=== PATIENT | female | born 1960 | race Caucasian/White ===

== ENCOUNTER 2018-06-26 18:45 | Inpatient (IN) | payer MEDICARE ==
[~2018-06-26] VITALS: Ht 170.2 cm; Wt 97.8 kg
[~2018-06-26 18:45] MED LIST: CHLO25CA9; LORA0.5T; META800T; TRAZ150T18; VENL75CA
--- NOTE | 2018-06-26 18:54 | NUR ---
ASSUMED CARE OF PATIENT. PATIENT REPORTS SHE TRIPPED OVER HER DOG. MGLF. NO LOC. PT ALSO REPORTS SHE DRINKS EVERYDAY AND HAS HAD A FEW DRINKS. NO ACUTE DISTRESS NOTED. HX OF BACK PAIN. VS STABLE. WILL CONTINUE TO MONITOR.
[2018-06-26] MEDS ORDERED: KETOROLAC 30 MG/1 ML IM ONE (19:30)
[2018-06-26] MEDS ORDERED: KETOROLAC 30 MG/1 ML ONE (19:32)
--- NOTE | 2018-06-26 19:35 | NUR ---
AT BEDSIDE. PT WATCHING TV. NO ACUTE DISTRESS NOTED. CALL LIGHT IN PLACE. WILL CONTINUE TO MONITOR.
[2018-06-26] MEDS ORDERED: TRAZ150T62 PO (19:37)
[2018-06-26] MEDS ORDERED: KETOROLAC 30 MG/1 ML IVPush ONE (20:00)
--- NOTE | 2018-06-26 20:49 | NUR ---
DR CORONA HAS UPDATED PATIENT PATIENT DROPED TO 85% RA. 2L OF OXYGEN ON AT 95% CALL LIGHT IN PLACE. WILL CONTINUE TO MONITOR.
[2018-06-26 21:10] LABS: BASOPHILS # (AUTO) 0.12 x10^3/uL (0-0.1); BASOPHILS % (AUTO) 2 % (0-1); EOSINOPHILS # (AUTO) 0.07 x10^3/uL (0-0.4); EOSINOPHILS % (AUTO) 1 % (1-7); LYMPHOCYTES # (AUTO) 1.34 x10^3/uL (1-3.4); LYMPHOCYTES % (AUTO) 17 % (22-44); MD NO; MEAN CORPUSCULAR HEMOGLOBIN 37.4 pg (27.0-34.8); MEAN CORPUSCULAR HGB CONC 34.5 g/dL (32.4-35.8); MEAN CORPUSCULAR VOLUME 108.5 fL (80-100); MEAN PLATELET VOLUME 7.3 fL (7.4-10.4); MONOCYTES # (AUTO) 0.72 x10^3/uL (0.2-0.8); MONOCYTES % (AUTO) 9 % (2-9); NEUTROPHILS # (AUTO) 5.63 x10^3/uL (1.8-6.8); NEUTROPHILS % (AUTO) 72 % (42-75); PLATELET COUNT 254 x10^3/uL (130-400); RED BLOOD COUNT 3.81 x10^6/uL (3.82-5.3)
[2018-06-26 21:22] LABS: ANION GAP 14 mmol/L (5-15); CALCIUM 8.6 mg/dL (8.5-10.1); CHLORIDE 84 mmol/L (98-107)
[2018-06-26 21:27] LABS: ALANINE AMINOTRANSFERASE 50 U/L (12-78); ALKALINE PHOSPHATASE 292 U/L (45-117); BILIRUBIN,TOTAL 1.9 mg/dL (0.2-1.0); CREATININE 0.73 mg/dL (0.55-1.02); TOTAL PROTEIN 6.8 g/dL (6.4-8.2)
[2018-06-26] MEDS ORDERED: LEXAPRO (21:57)
[2018-06-26] MEDS ORDERED: NS + 20MEQ KCL 1,000 ML IV SCH ×2 (21:59→23:00)
[2018-06-26] MEDS ORDERED: MAXIDE (21:59)
--- NOTE | 2018-06-26 21:59 | NUR ---
REPORT GIVEN TO ARTURO MERAZ
[2018-06-26] MEDS ORDERED: MAGNESIUM SULFATE 1 GM in SODIUM CHLORIDE 0.9% 50 ML IV ONE (22:00)
[2018-06-26] MEDS ORDERED: POTASSIUM CHLORIDE 10% 40 MEQ/30 ML UDC PO ONE (22:00)
[2018-06-26] MEDS ORDERED: SODIUM CHLORIDE FLUSH 10ML SYR IVF PRN (22:00)
[2018-06-26] MEDS ORDERED: NS + 40MEQ KCL 1,000 ML IV SCH (22:00)
[2018-06-26] MEDS ORDERED: POTASSIUM CHLORIDE 10% 40 MEQ/30 ML UDC ONE (22:00)
[2018-06-26] MEDS ORDERED: ONDANSETRON 2MG/ML, 2ML ONE (22:01)
--- NOTE | 2018-06-26 22:25 | NUR ---
Telephone SBAR report called to Shanel MORRIS.
[2018-06-26] MEDS ORDERED: SODIUM CHLORIDE 0.9% 1,000 ML IV SCH (22:29)
[2018-06-26] MEDS ORDERED: ONDANSETRON 2MG/ML, 2ML IVPush ONE (22:30)
[2018-06-26] MEDS ORDERED: POLYETHYLENE GLYCOL 17 GM PACKET PO PRN (22:30)
[2018-06-26] MEDS ORDERED: CHLORDIAZEPOXIDE 25 MG CAPSULE PO PRN (22:30)
[2018-06-26] MEDS ORDERED: ACETAMINOPHEN 325 MG TABLET PO PRN (22:30)
[2018-06-26] MEDS ORDERED: TRAZODONE 150MG TABLET PO SCH (22:30)
[2018-06-26] MEDS ORDERED: ONDANSETRON ODT 4 MG PO PRN (22:30)
[2018-06-26] MEDS ORDERED: BISACODYL 10 MG SUPP PR PRN (22:30)
[2018-06-26 22:54] VITALS: BP 112/78
[2018-06-26] MEDS ORDERED: TRIA1TAB PO (23:27)
[2018-06-26] MEDS: METHOCARBAMOL 500 MG TABLET PO PRN (23:53)
[2018-06-27 03:22] VITALS: BP 103/60
[2018-06-27] MEDS ORDERED: POTASSIUM CHLORIDE 20 MEQ TAB.ER.PRT PO ONE (04:30)
[2018-06-27] MEDS ORDERED: POTASSIUM CHLORIDE 40 MEQ in SODIUM CHLORIDE 0.9% 500 ML IV ONE ×2 (04:30→10:00)
[2018-06-27] MEDS ORDERED: PLEASE ENTER ALLERGIES MC SCH (05:00)
[2018-06-27 05:48] LABS: BASOPHILS # (AUTO) 0.05 x10^3/uL (0-0.1); BASOPHILS % (AUTO) 1 % (0-1); EOSINOPHILS # (AUTO) 0.05 x10^3/uL (0-0.4); EOSINOPHILS % (AUTO) 1 % (1-7); LYMPHOCYTES # (AUTO) 1.06 x10^3/uL (1-3.4); LYMPHOCYTES % (AUTO) 16 % (22-44); MD NO; MEAN CORPUSCULAR HEMOGLOBIN 37.9 pg (27.0-34.8); MEAN CORPUSCULAR HGB CONC 34.9 g/dL (32.4-35.8); MEAN CORPUSCULAR VOLUME 108.3 fL (80-100); MEAN PLATELET VOLUME 7.7 fL (7.4-10.4); MONOCYTES # (AUTO) 0.69 x10^3/uL (0.2-0.8); MONOCYTES % (AUTO) 10 % (2-9); NEUTROPHILS # (AUTO) 4.85 x10^3/uL (1.8-6.8); NEUTROPHILS % (AUTO) 72 % (42-75); PLATELET COUNT 229 x10^3/uL (130-400); RED BLOOD COUNT 3.53 x10^6/uL (3.82-5.3); RED CELL DISTRIBUTION WIDTH 15.7 % (9.6-15.2)
[2018-06-27 05:57] LABS: ALANINE AMINOTRANSFERASE 51 U/L (12-78); ALBUMIN 2.6 g/dL (3.4-5.0); ANION GAP 10 mmol/L (5-15); CHLORIDE 89 mmol/L (98-107); CREATININE 0.71 mg/dL (0.55-1.02)
[2018-06-27 06:00] LABS: ALKALINE PHOSPHATASE 271 U/L (45-117); BILIRUBIN,TOTAL 2.2 mg/dL (0.2-1.0); TOTAL PROTEIN 6.2 g/dL (6.4-8.2)
[2018-06-27] MEDS: KETOROLAC 30 MG/1 ML IVPush PRN ×2 (06:38→17:37)
[2018-06-27 07:04] VITALS: BP 113/72
[2018-06-27] MEDS: SENNA/DOCUSATE TABLET PO SCH (09:00)
[2018-06-27] MEDS ORDERED: SODIUM PHOSPHATE 10 MMOL in SODIUM CHLORIDE 0.9% 500 ML IV ONE (10:00)
[2018-06-27 10:09] VITALS: BP 105/66
[2018-06-27] MEDS: FOLIC ACID 1 MG TABLET PO SCH (10:12)
[2018-06-27] MEDS: THIAMINE 100MG TABLET PO SCH ×2 (10:12→21:25)
[2018-06-27] MEDS: METHOCARBAMOL 500 MG TABLET PO PRN ×2 (10:12→21:25)
[2018-06-27] MEDS ORDERED: LORazepam 1MG TABLET PO PRN ×4 (11:00)
[2018-06-27] MEDS ORDERED: LORazepam 2 MG/ML, 1ML IV PRN ×5 (11:00)
[2018-06-27] MEDS ORDERED: LORazepam 0.5MG TABLET PO PRN (11:00)
[2018-06-27 13:22] VITALS: BP 109/76
[2018-06-27] MEDS: OXYcodone IR 5MG TABLET PO PRN ×2 (14:41→21:25)
[2018-06-27] MEDS ORDERED: GADOBUTROL 10 MMOL/10 ML PFS ONE (15:24)
[2018-06-27 16:45] LABS: INTERNATIONAL NORMALIZED RATIO 1.01 (0.93-1.1); PROTHROMBIN TIME 10.6 Seconds (9.6-11.5)
[2018-06-27 19:07] VITALS: BP 112/67
[2018-06-27] MEDS: HEPARIN 5,000 UNITS/ML, 1ML SQ SCH (21:24)
[2018-06-27] MEDS: DIPHENHYDRAMINE 12.5MG/5ML, 10ML UDC PO PRN (21:40)
[2018-06-28 02:09] VITALS: BP 110/72
[2018-06-28] MEDS: HEPARIN 5,000 UNITS/ML, 1ML SQ SCH ×3 (05:14→20:17)
[2018-06-28 05:38] LABS: BASOPHILS # (AUTO) 0.03 x10^3/uL (0-0.1); BASOPHILS % (AUTO) 1 % (0-1); EOSINOPHILS # (AUTO) 0.08 x10^3/uL (0-0.4); EOSINOPHILS % (AUTO) 2 % (1-7); LYMPHOCYTES # (AUTO) 1.03 x10^3/uL (1-3.4); LYMPHOCYTES % (AUTO) 20 % (22-44); MD NO; MEAN CORPUSCULAR HEMOGLOBIN 37.4 pg (27.0-34.8); MEAN CORPUSCULAR HGB CONC 34.1 g/dL (32.4-35.8); MEAN CORPUSCULAR VOLUME 109.7 fL (80-100); MEAN PLATELET VOLUME 8.3 fL (7.4-10.4); MONOCYTES # (AUTO) 0.42 x10^3/uL (0.2-0.8); MONOCYTES % (AUTO) 8 % (2-9); NEUTROPHILS # (AUTO) 3.62 x10^3/uL (1.8-6.8); NEUTROPHILS % (AUTO) 70 % (42-75); PLATELET COUNT 172 x10^3/uL (130-400); RED BLOOD COUNT 3.41 x10^6/uL (3.82-5.3)
[2018-06-28 05:50] LABS: CHLORIDE 95 mmol/L (98-107)
[2018-06-28 05:57] LABS: ALANINE AMINOTRANSFERASE 47 U/L (12-78); ALBUMIN 2.4 g/dL (3.4-5.0); ALKALINE PHOSPHATASE 258 U/L (45-117); ANION GAP 8 mmol/L (5-15); BILIRUBIN,TOTAL 2.8 mg/dL (0.2-1.0); CALCIUM 7.6 mg/dL (8.5-10.1); TOTAL PROTEIN 5.6 g/dL (6.4-8.2)
[2018-06-28 06:26] VITALS: BP 113/74
[2018-06-28] MEDS: SENNA/DOCUSATE TABLET PO SCH (09:00)
[2018-06-28] MEDS: FOLIC ACID 1 MG TABLET PO SCH (09:00)
[2018-06-28] MEDS: OXYcodone IR 5MG TABLET PO PRN ×3 (09:20→21:58)
[2018-06-28] MEDS: THIAMINE 100MG TABLET PO SCH ×2 (09:21→20:16)
[2018-06-28] MEDS ORDERED: POTASSIUM PHOSPHATE 22 MEQ in SODIUM CHLORIDE 0.9% 500 ML IV ONE ×2 (09:30→15:00)
[2018-06-28] MEDS ORDERED: POTASSIUM CHLORIDE 40 MEQ in SODIUM CHLORIDE 0.9% 500 ML IV ONE (09:30)
[2018-06-28] MEDS: METHOCARBAMOL 500 MG TABLET PO PRN ×2 (13:48→20:16)
[2018-06-28 14:00] VITALS: BP 104/70
[2018-06-28] MEDS ORDERED: POTASSIUM CHLORIDE 20 MEQ TAB.ER.PRT PO SCH (17:00)
[2018-06-28] MEDS ORDERED: TRIA1TAB5 PO (18:58)
[2018-06-28 20:00] VITALS: BP 92/61
[2018-06-28] MEDS: KETOROLAC 30 MG/1 ML IVPush PRN (20:16)
[2018-06-28] MEDS: DIPHENHYDRAMINE 12.5MG/5ML, 10ML UDC PO PRN (21:58)
[2018-06-29 01:56] VITALS: BP 93/65
[2018-06-29 05:31] LABS: ALANINE AMINOTRANSFERASE 51 U/L (12-78); ALBUMIN 2.3 g/dL (3.4-5.0); ANION GAP 6 mmol/L (5-15); CALCIUM 7.3 mg/dL (8.5-10.1); CHLORIDE 97 mmol/L (98-107); CREATININE 0.65 mg/dL (0.55-1.02)
[2018-06-29 05:34] LABS: ALKALINE PHOSPHATASE 232 U/L (45-117); TOTAL PROTEIN 5.3 g/dL (6.4-8.2)
[2018-06-29] MEDS: HEPARIN 5,000 UNITS/ML, 1ML SQ SCH (05:48)
[2018-06-29] MEDS: OXYcodone IR 5MG TABLET PO PRN (05:48)
[2018-06-29] MEDS: DIPHENHYDRAMINE 12.5MG/5ML, 10ML UDC PO PRN (05:48)
[2018-06-29 08:21] VITALS: BP 93/62
[2018-06-29] MEDS: SENNA/DOCUSATE TABLET PO SCH (08:28)
[2018-06-29] MEDS: FOLIC ACID 1 MG TABLET PO SCH (08:28)
[2018-06-29] MEDS: THIAMINE 100MG TABLET PO SCH (08:29)
[2018-06-29] MEDS ORDERED: SODIUM PHOSPHATE 20 MMOL in SODIUM CHLORIDE 0.9% 500 ML IV ONE (08:30)
[2018-06-29] MEDS ORDERED: SENN-177 PO (08:31)
[2018-06-29] MEDS ORDERED: OXYC5TAB3 PO (08:31)
[2018-06-29] MEDS ORDERED: METH500T7 PO (08:31)
[2018-06-29] MEDS ORDERED: GABA100C PO (08:31)
[2018-06-29] MEDS ORDERED: THIA100T67 PO (08:31)
[2018-06-29] MEDS ORDERED: FOLI-17 PO (08:31)
[2018-06-29] MEDS ORDERED: MULT-516 PO (08:31)
[2018-06-29] MEDS: METHOCARBAMOL 500 MG TABLET PO PRN (08:38)
== END 2018-06-29 12:20 | disposition home or self-care (01) | DRG 542 ==
LOC: ED 22:10 → 4WST 23:01 → DCLOUNGE 06-29 11:35
PROVIDERS: ADMIT Family Medicine; ATTEND Family Medicine
DX: M48.56XA Collapsed vertebra, not elsewhere classified, lumbar region, initial encounter for fracture (principal); J96.01 Acute respiratory failure with hypoxia; E87.1 Hypo-osmolality and hyponatremia; E44.0 Moderate protein-calorie malnutrition; M54.5 Low back pain; M06.9 Rheumatoid arthritis, unspecified; F10.20 Alcohol dependence, uncomplicated; D75.89 Other specified diseases of blood and blood-forming organs; W18.30XA Fall on same level, unspecified, initial encounter; E87.5 Hyperkalemia; E87.6 Hypokalemia; F32.9 Major depressive disorder, single episode, unspecified; G47.00 Insomnia, unspecified; G89.29 Other chronic pain; K70.0 Alcoholic fatty liver; M19.90 Unspecified osteoarthritis, unspecified site; R09.02 Hypoxemia; Z90.10 Acquired absence of unspecified breast and nipple; Z85.3 Personal history of malignant neoplasm of breast; Y93.89 Activity, other specified; Y92.89 Other specified places as the place of occurrence of the external cause; Z68.33 Body mass index [BMI] 33.0-33.9, adult
CPT/HCPCS: 36415; 71045; 72110; 72158; 72220; 76700; 80053; 80307; 82607; 82746; 83690; 83735; 84100; 84295; 85025; 85610; 93005; 96374; 96375; A9585; G0378; J1644; J1885; J2405; J3475; J3480; J7040